=== PATIENT | female | born 1950 | race Caucasian/White ===

== ENCOUNTER 2017-04-24 13:32 | Inpatient (IN) ==
[2017-04-24] MEDS ORDERED: *HR* OxyCODONE Immed Rel 5 MG TABLET PO PRN (18:33)
[2017-04-24] MEDS: *HR* Metformin 500 MG TABLET PO SCH (21:56)
[2017-04-24] MEDS: Famotidine 20 MG TABLET PO SCH (21:56)
[2017-04-24] MEDS: Gabapentin 300 MG CAPSULE PO SCH (21:56)
[2017-04-24] MEDS: *HR* OxyCODONE Immed Rel 5 MG TABLET PO PRN (21:58)
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
[2017-04-25] MEDS: Famotidine 20 MG TABLET PO SCH ×2 (05:44→16:19)
[2017-04-25 05:45] LABS: Basophils % 0.4 %; Eosinophils # 0.2 K/mcL (0.0-0.6); Eosinophils % 2.6 %; Hematocrit 23.2 % (35.3-44.9); Hemoglobin 7.8 g/dL (11.5-15.4); Immature Granulocytes % 0.6 % (0-4); Lymphocytes # 1.7 K/mcL (0.6-4.6); Lymphocytes % 23.7 %; Mean Corpuscular HGB Conc 33.6 g/dL (31.6-35.5); Mean Corpuscular Hemoglobin 30.5 pg (28.0-33.3); Mean Corpuscular Volume 90.6 fL (83.0-100.0); Mean Platelet Volume 10.2 fL (9.4-12.4); Monocytes # 0.8 K/mcL (0.0-1.3); Monocytes % 10.9 %; Neutrophils # 4.4 K/mcL (1.6-8.9); Nucleated Red Blood Cells 0.3 /100 WBC (0); Platelet Count 165 K/mcL (140-400); Red Blood Count 2.56 M/mcL (3.82-4.97); Red Cell Distribution Width 14.4 % (11.5-14.5); Segmented Neutrophils % 61.8 %
[2017-04-25] MEDS: *HR* OxyCODONE Immed Rel 5 MG TABLET PO PRN ×3 (05:45→21:15)
[2017-04-25 06:02] LABS: BUN/Creatinine Ratio 15 (6-26); Blood Urea Nitrogen 11 mg/dL (7-20); Calcium 8.6 mg/dL (8.6-10.8); Carbon Dioxide 25 mEq/L (19-29); Chloride 103 mEq/L (98-109); Glucose 132 mg/dL (70-99); Osmolality,Calculated 287 (280-300); Potassium 3.7 mEq/L (3.5-4.5); Sodium 138 mEq/L (136-145); eGFR For African Americans > 60 (> 60); eGFR For Non-African Americans > 60 (> 60)
[2017-04-25] MEDS: Aspirin Enteric Coated 325 MG Tablet PO SCH (08:52)
[2017-04-25] MEDS: Loratadine 10 MG TABLET PO SCH (08:52)
[2017-04-25] MEDS: *HR* Metformin 500 MG TABLET PO SCH ×2 (08:52→21:15)
[2017-04-25] MEDS: Gabapentin 300 MG CAPSULE PO SCH ×3 (08:52→21:15)
[2017-04-26] MEDS: Famotidine 20 MG TABLET PO SCH ×2 (05:38→16:43)
[2017-04-26] MEDS: *HR* OxyCODONE Immed Rel 5 MG TABLET PO PRN ×2 (05:38→13:40)
--- NOTE | 2017-04-26 08:51 | Internal Med Progress Note ---
Date of Encounter: 04/26/17 Time of Encounter: 08:49 - Assessment and plan (1) DMII (diabetes mellitus, type 2) Current Visit: Yes Status: Chronic Assessment and plan: Patient is on oral medications. HBA1C ordered for Friday overall blood sugar control. Random blood sugars seems controlled . Qualifiers: Diabetes mellitus complication status: with unspecified complications Diabetes mellitus residential insulin use: without termite inspector use Qualified Code( s): E11.8 - Type 2 diabetes mellitus with unspecified complications (2) HTN (hypertension) Current Visit: Yes Status: Chronic Assessment and plan: Hypertension medication. Well-controlled. #No complications at the present time. Continue present attachment. Qualifiers: Hypertension type: essential hypertension Qualified Code(s): I10 - Essential (primary) hypertension (3) Total knee replacement status Current Visit: Yes Status: Acute Assessment and plan: Patient a status for TKR. Her wound is stable and healing well .No sign of inflammation. Her pain is well controlled. She is in rehab and participating. Qualifiers: Laterality: right Qualified Code(s): Z96.651 - Presence of right artificial knee joint (4) Acute blood loss anemia Current Visit: Yes Status: Acute Assessment and plan: There is some drop in her hemoglobin. At the present time she is asymptomatic. Will continue to follow. This loss is most likely secondary secondary to surgery. - Subjective Interval history: Seen for the 1st time. Status falls right TKR. At the present time she denies any complaints. She is actively participating in rehab. Denies any new complaints. - Constitutional Vitals: Temp Pulse Resp BP Pulse Ox 98.0 F 96 18 115/51 93 04/25/17 19:15 04/25/17 19:15 04/25/17 19:15 04/25/17 19:15 04/25/17 19:15 General appearance: Present: A&O X 3, pleasant, no acute distress, obese, answers questions appropriately - Neck Neck exam general surgery: Present: supple - Respiratory Respiratory exam: Present: CTAB. Absent: chest wall tenderness, decreased breath sounds, respiratory distress - Cardiovascular Cardiovascular exam: Present: RRR. Absent: JVD - GI/Abdominal GI/Abdominal exam: Present: normal bowel sounds, soft. Absent: rebound, tenderness - Incison Incision: Present: intact. Absent: erythema, indurated, serosanguinous, open Internal Medicine: Result - Labs CBC & Chem 7: 04/25/17 05:21 04/25/17 05:21 - VTE Documentation of Mechanical Device: Graduated compression elastic hosiery Consult Discharge Plan - Plan Referrals: Avril Randle [Primary Care Provider] -
[2017-04-26] MEDS: Loratadine 10 MG TABLET PO SCH (09:23)
[2017-04-26] MEDS: Gabapentin 300 MG CAPSULE PO SCH ×3 (09:24→20:43)
[2017-04-26] MEDS: *HR* Metformin 500 MG TABLET PO SCH ×2 (09:24→20:43)
[2017-04-26] MEDS: Aspirin Enteric Coated 325 MG Tablet PO SCH (09:24)
[2017-04-27] MEDS: *HR* OxyCODONE Immed Rel 5 MG TABLET PO PRN ×4 (00:53→21:27)
[2017-04-27] MEDS: Famotidine 20 MG TABLET PO SCH ×2 (06:31→15:27)
[2017-04-27] MEDS: Aspirin Enteric Coated 325 MG Tablet PO SCH (09:16)
[2017-04-27] MEDS: *HR* Metformin 500 MG TABLET PO SCH ×2 (09:17→21:26)
[2017-04-27] MEDS: Gabapentin 300 MG CAPSULE PO SCH ×3 (09:17→21:27)
[2017-04-27] MEDS: Loratadine 10 MG TABLET PO SCH (10:13)
[2017-04-28 06:00] LABS: Basophils % 0.7 %; Eosinophils # 0.3 K/mcL (0.0-0.6); Eosinophils % 6.1 %; Hematocrit 24.4 % (35.3-44.9); Hemoglobin 8.1 g/dL (11.5-15.4); Immature Granulocytes % 1.1 % (0-4); Lymphocytes # 1.8 K/mcL (0.6-4.6); Lymphocytes % 32.2 %; Mean Corpuscular HGB Conc 33.2 g/dL (31.6-35.5); Mean Corpuscular Hemoglobin 30.9 pg (28.0-33.3); Mean Corpuscular Volume 93.1 fL (83.0-100.0); Mean Platelet Volume 9.8 fL (9.4-12.4); Monocytes # 0.8 K/mcL (0.0-1.3); Monocytes % 14.2 %; Neutrophils # 2.5 K/mcL (1.6-8.9); Platelet Count 258 K/mcL (140-400); Red Blood Count 2.62 M/mcL (3.82-4.97); Red Cell Distribution Width 14.2 % (11.5-14.5); Segmented Neutrophils % 45.7 %
[2017-04-28 06:08] LABS: BUN/Creatinine Ratio 13 (6-26); Blood Urea Nitrogen 12 mg/dL (7-20); Calcium 9.3 mg/dL (8.6-10.8); Carbon Dioxide 22 mEq/L (19-29); Chloride 105 mEq/L (98-109); Glucose 125 mg/dL (70-99); Osmolality,Calculated 291 (280-300); Potassium 4.8 mEq/L (3.5-4.5); Sodium 140 mEq/L (136-145); eGFR For African Americans > 60 (> 60); eGFR For Non-African Americans > 60 (> 60)
[2017-04-28] MEDS: Famotidine 20 MG TABLET PO SCH ×2 (06:13→15:54)
[2017-04-28] MEDS: *HR* Metformin 500 MG TABLET PO SCH ×2 (08:44→21:59)
[2017-04-28] MEDS: *HR* OxyCODONE Immed Rel 5 MG TABLET PO PRN ×2 (08:44→15:54)
[2017-04-28] MEDS: Gabapentin 300 MG CAPSULE PO SCH ×3 (08:45→21:59)
[2017-04-28] MEDS: Aspirin Enteric Coated 325 MG Tablet PO SCH (08:45)
[2017-04-28] MEDS: Loratadine 10 MG TABLET PO SCH (08:45)
[2017-04-29] MEDS: *HR* OxyCODONE Immed Rel 5 MG TABLET PO PRN ×4 (00:49→21:28)
[2017-04-29] MEDS: *HR* Metformin 500 MG TABLET PO SCH ×2 (07:53→21:26)
[2017-04-29] MEDS: Gabapentin 300 MG CAPSULE PO SCH ×3 (07:53→21:27)
[2017-04-29] MEDS: Aspirin Enteric Coated 325 MG Tablet PO SCH (07:53)
[2017-04-29] MEDS: Loratadine 10 MG TABLET PO SCH (07:54)
[2017-04-29] MEDS: Famotidine 20 MG TABLET PO SCH ×2 (07:54→15:42)
--- NOTE | 2017-04-29 10:20 | Discharge Summary ---
Date of Encounter: 04/30/17 Time of Encounter: 10:16 - Discharge Diagnosis (1) DMII (diabetes mellitus, type 2) Priority: Secondary Status: Chronic Comments: History of diabetes. She was treated medication for continued for diabetes during her stay. She was given appropriate diet instructions. She will be discharged on her home medications for her diabetes. Qualifiers: Diabetes mellitus complication status: with unspecified complications Diabetes mellitus retirement insulin use: without retirement use Qualified Code( s): E11.8 - Type 2 diabetes mellitus with unspecified complications (2) HTN (hypertension) Priority: Secondary Status: Chronic Comments: High blood pressure medication for continued doing to stay With no change. Qualifiers: Hypertension type: essential hypertension Qualified Code(s): I10 - Essential (primary) hypertension (3) Total knee replacement status Priority: Primary Status: Acute Comments: Status post knee replacement. Her participation for her rehab was excellent. Her incision is stable without any evidence of infection. Qualifiers: Laterality: right Qualified Code(s): Z96.651 - Presence of right artificial knee joint (4) Acute blood loss anemia Priority: Secondary Status: Acute Comments: Her hemoglobin is stable at the present time. She might benefit the use of iron for short period of time. - Discharge Medications Home Medications: Cyclobenzaprine [Flexeril] 10 mg PO TID PRN 04/27/15 [History] Duloxetine HCl [Cymbalta] 60 mg PO QAM 04/27/15 [History] Gabapentin [Neurontin] 300 mg PO TID 04/27/15 [History] Levothyroxine Sodium [Synthroid] 75 mcg PO QAM 04/27/15 [History] Metformin [Glucophage] 500 mg PO BID 04/27/15 [History] Simvastatin 20 mg PO QPM 04/27/15 [History] raNITIdine HCl [Ranitidine HCl] 150 mg PO BID 04/27/15 [History] Aspirin Enteric Coated [Aspirin EC] 325 mg PO DAILY #21 tablet. 04/20/17 [Rx] OxyCODONE Immed Rel [Roxicodone 5 MG] 5 - 10 mg PO Q6HR PRN #40 tablet 04/20/17 [Rx] Calcium Carbonate [Calcium] 600 mg PO BID 04/21/17 [History] Loratadine [Allergy Relief] 10 mg PO DAILY 04/21/17 [History] Losartan Potassium [Cozaar] 100 mg PO DAILY 04/21/17 [History] Allergies/Adverse Reactions: Allergies chocolate flavor Allergy (Severe, Verified 04/21/17 13:23) Anaphylaxis SHORTNESS OF BREATH NSAIDS (Non-Steroidal Anti-Inflamma Adverse Reaction (Severe, Verified 04/21/17 13:23) STOMACH ULCER BLEEDING ULCER Date of admission: 04/24/17 18:00 04/24/2017 Primary care physician: Avril Randle Consults: 04/24/17 18:30 Consult to Occupational Therapy [CONS] Routine Comment: Evaluate, develop and implement POC Reason for Consult: eval /tx Consult to Physical Medicine/Rehab [CONS] Routine Reason for Consult: eval Time Notified: 18:33 Call Completed: Yes Consult to Physical Therapy [CONS] Routine Comment: Evaluate, develop and implement POC Reason for Consult: eval Consult to Recreational Therapy [CONS] Routine Comment: Evaluate, develop and implement POC Consult to Wel[employer] [CONS] Routine Reason for SW Consult: d/c planning Discharging clinician: Ruth Roberts Anticipated date of discharge: 04/30/17 - Patient Status Disposition: Home Health Service Condition: Good Overall status at discharge: patient is progressing back to baseline (coming back to her base line and improving slowly) - Discharge Instructions Follow Up With: Avril Randle [Primary Care Provider] - - Diet and Activity Activity: ambulate only with your walker, as per physical therapy, return to school once cleared by your PCP/specialist Diet: advance to your usual diet Interval History: Her hospital stay has been unremarkable. Her medications were continued. Her participation in the have was appropriate. At the present time she is stable and has improved and has met her goals for rehab. Medically no new issues at the present time. Hospital course: Ms. Mann is a 66 year old female - Time Spent with Patient Total time spent providing and/or coordinating discharge services: - Constitutional Vitals: Temp Pulse Resp BP Pulse Ox 97.8 F 81 18 133/88 97 04/29/17 07:29 04/29/17 07:29 04/29/17 07:29 04/29/17 07:29 04/29/17 07:29 General appearance: Present: A&O X 3, pleasant, no acute distress, obese, answers questions appropriately - Head Head exam: Present: normal inspection - ENT ENT exam: Present: mucous membranes moist, normal external ear exam - Neck Neck exam general surgery: Present: supple. Absent: tenderness - Respiratory Respiratory exam: Present: CTAB. Absent: prolonged expiratory phase, respiratory distress, rhonchi, stridor, wheezes - Cardiovascular Cardiovascular exam: Present: RRR. Absent: diastolic murmur, distant heart sounds, JVD - GI/Abdominal GI/Abdominal exam: Present: normal bowel sounds, soft. Absent: tenderness - Incison Incision: Present: clean and dry, intact - Neurological Exam Neurological exam: Present: CN II-XII intact, no focal deficits - VTE Documentation of Mechanical Device: Graduated compression elastic hosiery
--- NOTE | 2017-04-29 14:16 | Physician Discharge Referral ---
Home Health/Hosp Referral Info Transfer to: Home Health - Diagnosis (1) DMII (diabetes mellitus, type 2) Status: Chronic (2) HTN (hypertension) Status: Chronic (3) Total knee replacement status Status: Acute (4) Acute blood loss anemia Status: Acute (5) Depression Status: Chronic (6) Hypothyroid Status: Acute - Respiratory Orders None Smoking Cessation: Smoking cessation has been advised. For more information, call the [place] Tobacco Quit Line at 6-230-UGCD-NOW. - Diet/Nutrition Diet/Nutrition Orders: Regular - Activity Activity Orders: Walker - Services Needed Following services are medically necessary services: Nursing, Physical Therapy - Transfer Medications Home Medications: Cyclobenzaprine [Flexeril] 10 mg PO TID PRN 04/27/15 [History] Duloxetine HCl [Cymbalta] 60 mg PO QAM 04/27/15 [History] Gabapentin [Neurontin] 300 mg PO TID 04/27/15 [History] Levothyroxine Sodium [Synthroid] 75 mcg PO QAM 04/27/15 [History] Metformin [Glucophage] 500 mg PO BID 04/27/15 [History] Simvastatin 20 mg PO QPM 04/27/15 [History] raNITIdine HCl [Ranitidine HCl] 150 mg PO BID 04/27/15 [History] Aspirin Enteric Coated [Aspirin EC] 325 mg PO DAILY #21 tablet. 04/20/17 [Rx] OxyCODONE Immed Rel [Roxicodone 5 MG] 5 - 10 mg PO Q6HR PRN #40 tablet 04/20/17 [Rx] Calcium Carbonate [Calcium] 600 mg PO BID 04/21/17 [History] Loratadine [Allergy Relief] 10 mg PO DAILY 04/21/17 [History] Losartan Potassium [Cozaar] 100 mg PO DAILY 04/21/17 [History] Allergies/Adverse Reactions: Allergies chocolate flavor Allergy (Severe, Verified 04/21/17 13:23) Anaphylaxis SHORTNESS OF BREATH NSAIDS (Non-Steroidal Anti-Inflamma Adverse Reaction (Severe, Verified 04/21/17 13:23) STOMACH ULCER BLEEDING ULCER Certification: Further, I certify that my clinical findings support that this patient is homebound (i.e. absences from home require considerable and taxing effort and are for medical reasons or baptism services or infrequently or short duration when for other reasons) because: Homebound Reason: Patient requires assistance of a person or device to safely leave home, Leaving home requires considerable and taxing effort due to condition Attestation: My signature below is to certify that this patient is under my care and that I, or nurse practitioner, or a physician's recruitment assistant working with me, has a face-to -face encounter with this patient.
[2017-04-30] MEDS: *HR* OxyCODONE Immed Rel 5 MG TABLET PO PRN (05:55)
[2017-04-30] MEDS: Famotidine 20 MG TABLET PO SCH (05:55)
[2017-04-30 07:25] VITALS: BP 128/77
[2017-04-30] MEDS: Loratadine 10 MG TABLET PO SCH (09:18)
[2017-04-30] MEDS: Gabapentin 300 MG CAPSULE PO SCH (09:18)
[2017-04-30] MEDS: Aspirin Enteric Coated 325 MG Tablet PO SCH (09:18)
[2017-04-30] MEDS: *HR* Metformin 500 MG TABLET PO SCH (09:19)
== END 2017-04-30 14:45 | disposition home health service (06) | DRG 560 ==
LOC: INPGRE 18:00
PROVIDERS: ADMIT Family Medicine; ATTEND Family Medicine